=== PATIENT | female | born 1955 | race Asian ===

== ENCOUNTER → 2016-10-31 | Outpatient (CLI) | payer OTHER ==
[~2016-10-31] MED LIST: ADVIL100 M1 PO; BENADRYL25 MG PO; LIPITOR PO; MELOXICAM15 MG PO
--- NOTE | ~2016-10-31 | MY11 ---
[facility] A Service of [facility] RADIOLOGY TEXT RESULTS PATIENT: CHHAYA IBRAHMI LOCATION: [facility] : 53 UNIT #: [id number] AGE: [address]: Vin Estrada MD SEX: F ORDER DR: [id number] [facility] [place], [place] [address] [id number] MR#: [id number] Acc #: [id number] NAME: CHHAYA IBRAHIM : 1955 SEX: F STUDY DATE/TIME: 10/31/2016 14:44 UNIT: [facility] ROOM: STUDY DESCRIPTION: MY Mammogram Screening Dig Bird Attending Physician: Vin Estrada M.D. Ordering Physician: Vin Estrada M.D. Primary Care Physician: Vin Estrada M.D. MEDICAL IMAGING REPORT This report is preliminary unless electronic signature is present EXAM Bilateral digital screening mammogram with CAD INDICATION Breast cancer screening. 61 -year-old asymptomatic female. No personal or family history of breast cancer. COMPARISON 10/28/2015, 10/07/2015, 10/02/2013, 07/28/2011. FINDINGS There are scattered fibroglandular tissues. No suspicious findings are present. IMPRESSION No mammographic evidence of malignancy. Annual screening mammography and clinical breast exam are recommended. A result letter will be sent to the patient. Patients over the age of 40 are entered into a reminder system with target due date for the next mammogram. BIRADS: 1 Negative Dictated by... Palmer French M.D. THIS IS AN ELECTRONICALLY VERIFIED REPORT Palmer French M.D. at 10/31/2016 5:36 PM JEAN/sarah [facility] A Service of [facility] RADIOLOGY TEXT RESULTS PATIENT: CHHAYA IBRAHIM LOCATION: [facility] : 53 UNIT #: [id number] AGE: [address]: Vin Estrada MD SEX: F ORDER DR: TD: 10/31/2016 17:16 JOB #: [id number] MEDICAL IMAGING REPORT Page 1 of 1 COPY
== END | disposition home or self-care (01) ==
LOC: CWCC 14:15
DX: Z12.31 Encounter for screening mammogram for malignant neoplasm of breast (principal)
CPT/HCPCS: G0202